=== PATIENT | female | born 1990 | race Caucasian/White ===

== ENCOUNTER 2021-08-16 11:53 | Emergency (ER) | payer OTHER ==
[~2021-08-16 11:53] MED LIST: ARISTADA882 MG/3.2 IM; BACTRIM DS TAB1 EACH PO; CLARITIN-D 121 EACH PO; CYCLOBENZAPRINE5 MG PO; FLEXERIL10 MG PO; FLONASE ALLER15.8 ML INH; HALOPERIDO100 MG/1 M IM; IBUPROFEN800 MG PO; KEFLEX500 MG PO; LINZESS; MEDROXYPROGESTERONE; TESSALON PERLE100 M1 PO; ZOFRAN4 MG PO; abilify
[2021-08-16 12:49] LABS: BASOPHIL 0.6 % (0-2); EOSINOPHIL 0.4 % (0-5); HCT 40.2 % (37.0-47.0); HGB 13.6 g/dl (12.5-16.0); MCH 32.9 pg (25.0-31.0); MCHC 33.8 g/dL (32.0-36.0); MCV 97.1 fL (78.0-100.0); MONOCYTE 11.2 % (0-12); MPV 10.1 fL (6.0-9.5); NEUTROPHIL 52.5 % (41-80); NRBC 0; PLT 203 K/uL (150-400); RBC 4.14 M/uL (4.20-5.40); WBC 7.9 K/uL (4.0-10.5)
[2021-08-16 12:54] LABS: BILIRUBIN NEGATIVE (NEGATIVE); BLOOD NEGATIVE Ery/uL (NEGATIVE); CLARITY CLEAR (CLEAR); COLOR YELLOW (YELLOW); GLUCOSE (U) NORMAL (NORMAL); LEUKOCYTES NEGATIVE Leu/uL (NEGATIVE); NITRITE NEGATIVE (NEGATIVE); PROTEIN NEGATIVE (NEGATIVE); UROBILINOGEN 0.2 mg/dL (0.2-1.0); pH 6.5 (5.0-9.0)
[2021-08-16 12:58] LABS: ECSTASY (MDMA) NEGATIVE (NEGATIVE); MARIJUANA (THC) NEGATIVE (NEGATIVE); METHADONE NEGATIVE (NEGATIVE); OPIATES NEGATIVE (NEGATIVE)
[2021-08-16 12:59] LABS: AMPHETAMINES POSITIVE (NEGATIVE); BARBITURATES NEGATIVE (NEGATIVE); OXYCODONE NEGATIVE (NEGATIVE)
[2021-08-16 13:00] LABS: BUN 10 mg/dL (7-18); BUN/CREAT RATIO (CALC) 15.9 RATIO; CHLORIDE 103 mmol/L (98-107); CO2 (BICARBONATE) 27 mmol/L (21-32); CREATININE 0.63 mg/dL (0.51-0.95); GLUCOSE 100 mg/dL (74-106); POTASSIUM 4.7 mmol/L (3.5-5.1)
== END 2021-08-16 17:00 | disposition home or self-care (01) ==
LOC: FER 11:53
PROVIDERS: Nurse Practitioner Family
DX: F15.10 Other stimulant abuse, uncomplicated (principal); F19.10 Other psychoactive substance abuse, uncomplicated; F22 Delusional disorders; F17.210 Nicotine dependence, cigarettes, uncomplicated; Z88.8 Allergy status to other drugs, medicaments and biological substances
CPT/HCPCS: 36415; 80048; 80305; 81003; 85025; 99285; G0480

== ENCOUNTER 2021-09-04 11:06 | Emergency (ER) | payer OTHER ==
[~2021-09-04] VITALS: Ht 170.2 cm; Wt 83.0 kg
[2021-09-04 11:35] LABS: BASOPHIL 0.3 % (0-2); EOSINOPHIL 0.1 % (0-5); HCT 36.8 % (37.0-47.0); HGB 12.5 g/dl (12.5-16.0); LYMPHOCYTE 29.1 % (15-48); MCH 32.7 pg (25.0-31.0); MCV 96.3 fL (78.0-100.0); MPV 9.6 fL (6.0-9.5); NEUTROPHIL 63.1 % (41-80); NRBC 0; PLT 375 K/uL (150-400); RBC 3.82 M/uL (4.20-5.40); RDW 13.7 % (11.5-14.0); WBC 12.2 K/uL (4.0-10.5)
[2021-09-04 11:51] LABS: AMPHETAMINES POSITIVE (NEGATIVE); BARBITURATES NEGATIVE (NEGATIVE); ECSTASY (MDMA) POSITIVE (NEGATIVE); MARIJUANA (THC) POSITIVE (NEGATIVE); METHADONE NEGATIVE (NEGATIVE); OPIATES NEGATIVE (NEGATIVE); OXYCODONE NEGATIVE (NEGATIVE)
[2021-09-04 12:02] LABS: ALKALINE PHOSHATASE 64 U/L (46-116); ALT 34 U/L (14-59); AST 33 U/L (15-37); BILIRUBIN - TOTAL 0.5 mg/dL (0.2-1.0); BUN 12 mg/dL (7-18); BUN/CREAT RATIO (CALC) 19.7 RATIO; CHLORIDE 103 mmol/L (98-107); CO2 (BICARBONATE) 25 mmol/L (21-32); CREATININE 0.61 mg/dL (0.51-0.95); GLOBULIN (CALCULATION) 3.7 g/dL; GLUCOSE 90 mg/dL (74-106); POTASSIUM 3.5 mmol/L (3.5-5.1); TOTAL PROTEIN 7.7 g/dL (6.4-8.2)
[2021-09-04 12:05] LABS: ACETAMINOPHEN (TYLENOL) < 2.0 ug/mL (10.0-30.0)
== END 2021-09-04 11:58 | disposition home or self-care (01) ==
LOC: FER 11:06
PROVIDERS: Emergency Medicine
DX: F15.129 Other stimulant abuse with intoxication, unspecified (principal); F12.129 Cannabis abuse with intoxication, unspecified; F16.129 Hallucinogen abuse with intoxication, unspecified; F20.9 Schizophrenia, unspecified; F17.200 Nicotine dependence, unspecified, uncomplicated; Z88.8 Allergy status to other drugs, medicaments and biological substances
CPT/HCPCS: 36415; 80053; 80305; 85025; 99283; G0480